=== PATIENT | female | born 1995 | race Caucasian/White ===

== ENCOUNTER 2023-12-30 21:45 | Emergency (ER) | payer OTHER, SELFPAY ==
[2023-12-30 21:48] VITALS: BP 176/131; PULSE 108; TEMP 36.8; O2SAT 100; BMI 48.3
[2023-12-30 21:52] VITALS: PULSE 98
--- NOTE | 2023-12-30 21:52 | ECG_ITS ---
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
--- NOTE | 2023-12-30 22:06 | ED.SOB1 ---
HPI - SOB/Dyspnea General Chief Complaint: Shortness of Breath/Dyspnea Stated Complaint: Rib Pain shortness of breath Time Seen by Provider: 12/30/23 21:54 Source: patient Mode of arrival: walk-in Limitations: no limitations History of Present Illness HPI Narrative: presents complaining of left sided mid axillary chest pain since yesterday. Feels like she is not able to catch her breath. No nausea or light headiness. No known heart disease. no associated cough Related Data Home Medications ?Medication ?Instructions ?Recorded ?Confirmed bupropion HCl 300 mg 24 hr tablet, 300 mg PO DAILY 12/30/23 12/30/23 extended release (Wellbutrin XL) buspirone 10 mg tablet 10 mg PO BID PRN anxiety 12/30/23 12/30/23 Allergies Allergy/AdvReac Type Severity Reaction Status Date / Time No Known Drug Allergies Allergy Verified 12/30/23 21:48 Review of Systems ROS Status of ROS 10 or more systems reviewed and unremarkable except as noted in history and below Exam Constitutional Vital Signs, click to edit/add: Last Vital Signs Temp 98.2 F 12/30/23 21:48 Pulse 90 12/30/23 23:45 Resp 26 H 12/30/23 23:45 BP 132/91 12/30/23 23:45 Pulse Ox 98 12/30/23 23:45 O2 Del Method Room Air 12/30/23 23:45 Common normals: no apparent distress, average body habitus, oriented x3, no limitations, healthy appearing, alert and well nourished [facility] Common normals: normocephalic and head/scalp atraumatic Respiratory Common normals: normal respiratory effort, no retractions, no use of accessory muscles and clear to auscultation bilaterally Cardio Common normals: regular rate, regular rhythm, S1 normal heart sound and S2 normal heart sound GI Common normals: Normal to inspection, nondistended, normoactive bowel sounds present, soft to palpation and non-tender Extremity Common normals: normal to inspection and full ROM Neuro Common normals: oriented x3, CN's II-XII intact bilaterally, moves all extremities and no focal motor deficits Psych Appearance: grossly normal Course Vital Signs Vital signs: Vital Signs Temperature 98.2 F 12/30/23 21:48 Pulse Rate 108 H 12/30/23 21:48 Respiratory Rate 20 12/30/23 21:48 Blood Pressure 176/131 H 12/30/23 21:48 Pulse Oximetry 100 12/30/23 21:48 Oxygen Delivery Method Room Air 12/30/23 21:48 Temperature 98.2 F 12/30/23 21:48 Pulse Rate 90 12/30/23 23:45 Respiratory Rate 26 H 12/30/23 23:45 Blood Pressure 132/91 12/30/23 23:45 Pulse Oximetry 98 12/30/23 23:45 Oxygen Delivery Method Room Air 12/30/23 23:45 MDM - SOB/Dyspnea MDM Narrative Medical decision making narrative: presents complaining of pleuritic chest pain. d-dimer positive. CTA chest without definite PE. Pain improved after Toradol and solumedrol. Patient feeling better and discharged home with working diagnosis of pleurisy Lab Data Labs: Lab Results 12/30/23 Range/Units 22:17 WBC 11.1 H (4.0-11.0) 10^3/uL RBC 4.59 (4.20-5.40) 10^6/uL Hgb 12.8 (12.0-16.0) g/dL Hct 38.6 (36.0-48.0) % MCV 84.1 (81.0-99.0) fL MCH 27.9 (26.7-34.0) pg MCHC 33.2 (29.9-35.2) g/dL RDW 12.4 (11.0-15.0) % Plt Count 285 (150-450) 10^3/uL MPV 10.4 (9.5-13.5) fL Neut % (Auto) 66.7 (43.0-75.0) % Lymph % (Auto) 26.6 (20.5-60.0) % Bennett % (Auto) 5.2 (1.7-12.0) % Eos % (Auto) 1.0 (0.9-7.0) % Baso % (Auto) 0.3 (0.2-2.0) % Neut # (Auto) 7.4 H (1.4-6.5) 10^3/uL Lymph # (Auto) 3.0 (1.2-3.8) 10^3/uL Bennett # (Auto) 0.6 (0.3-0.8) 10^3/uL Eos # (Auto) 0.1 (0.0-0.7) 10^3/uL Baso # (Auto) 0.0 (0.0-0.1) 10^3/uL Abs Immat Gran (auto) 0.02 (0.00-0.03) 10^3/uL Imm/Tot Granulo (auto) 0.2 (0.0-0.5) % D-Dimer 0.65 H* (<=0.59) mg/L FEU Sodium 140 (136-145) mmol/L Potassium 3.8 (3.5-5.1) mmol/L Chloride 107 (98-107) mmol/L Carbon Dioxide 23.4 (21.0-32.0) mmol/L Anion Gap 13.4 BUN 13.0 (7.0-18.0) mg/dL Creatinine 0.76 (0.55-1.02) mg/dL Est GFR ( Amer) >60 (>=60) Est GFR (Non-Af Amer) >60 (>=60) BUN/Creatinine Ratio 17.1 Glucose 100 (74-106) mg/dL Calcium 9.1 (8.5-10.1) mg/dL Troponin I High Sens <4.0 L (4.0-51.3) pg/mL Serum HCG, Qual Negative (NEGATIVE) Imaging Data Chest x-ray: Radiologist's impression: ITS Impressions Chest X-Ray 12/30/23 22:08 IMPRESSION: No acute pulmonary disease. Electronically authenticated by: ESTELA FREY Date: 12/30/2023 22:49 Chest CTA 12/30/23 22:37 IMPRESSION: 1. Suboptimal opacification of the pulmonary arteries. No obvious central pulmonary embolism in the main pulmonary arteries or interlobar branches. Segmental and subsegmental branches are not optimally evaluated. 2. Trace left pleural effusion. No acute airspace disease within the lungs. Electronically authenticated by: ISAAK NICHOLS Date: 12/30/2023 23:37 Discharge Plan Discharge Stand Alone Forms: Portal Instructions Chief Complaint: Shortness of Breath/Dyspnea Clinical Impression: Pleuritic chest pain Patient Disposition: Home, Self-Care Prescriptions / Home Meds: No Action bupropion HCl [Wellbutrin XL] 300 mg tablet extended release 24 hr 300 mg PO DAILY buspirone 10 mg tablet 10 mg PO BID PRN (Reason: anxiety) Print Language: Syriac Instructions: Pleurisy (ED) Additional Instructions: use ibuprofen or similar for pain Referrals: [facility] [Primary Care Provider] - 1 week
--- NOTE | 2023-12-30 22:08 | XR_ITS ---
The [address] [address] Patient Name: SERGIO DONALDSON MRN: [id number] date: 1995 Sex: F Assigned Patient Location: ER Current Patient Location: ER Accession/Order Number: [id number] Exam Date: 12/30/2023 22:27 Report Date: 12/30/2023 22:49 At the request of: VICENTA BOWENS Procedure: XR chest 1V EXAM: XR chest 1V TECHNIQUE: Single AP view chest HISTORY: chest pain COMPARISON: CT scan 01/10/2012 FINDINGS: The cardiac silhouette is enlarged. There is no gross acute consolidation. Osseous structures are intact. Evaluation limited by low lung volumes. XR/XR chest 1V IMPRESSION: No acute pulmonary disease. Electronically authenticated by: ESTELA FREY Date: 12/30/2023 22:49
[2023-12-30 22:17] VITALS: O2SAT 98
[2023-12-30 22:25] LABS: Basophils Percent Auto 0.3 % (0.2-2.0); Eosinophils Absolute Auto 0.1 10^3/uL (0.0-0.7); Hematocrit 38.6 % (36.0-48.0); Hemoglobin 12.8 g/dL (12.0-16.0); Immature Granulocytes Abs Auto 0.02 10^3/uL (0.00-0.03); Immature Granulocytes Pct Auto 0.2 % (0.0-0.5); Lymphocytes Percent Auto 26.6 % (20.5-60.0); Mean Corpuscular HGB Conc 33.2 g/dL (29.9-35.2); Mean Corpuscular Hemoglobin 27.9 pg (26.7-34.0); Mean Corpuscular Volume 84.1 fL (81.0-99.0); Mean Platelet Volume 10.4 fL (9.5-13.5); Monocytes Absolute Auto 0.6 10^3/uL (0.3-0.8); Monocytes Percent Auto 5.2 % (1.7-12.0); Neutrophils Absolute Auto 7.4 10^3/uL (1.4-6.5); Neutrophils Percent Auto 66.7 % (43.0-75.0); Platelet Count 285 10^3/uL (150-450); Red Blood Count 4.59 10^6/uL (4.20-5.40); Red Cell Distribution Width 12.4 % (11.0-15.0); White Blood Count 11.1 10^3/uL (4.0-11.0)
[2023-12-30 22:35] LABS: HCG Qualitative NEGATIVE (NEGATIVE)
--- NOTE | 2023-12-30 22:37 | CT_ITS ---
The [address] [address] Patient Name: SERGIO DONALDSON MRN: [id number] date: 1995 Sex: F Assigned Patient Location: ER Current Patient Location: ER Accession/Order Number: [id number] Exam Date: 12/30/2023 23:01 Report Date: 12/30/2023 23:37 At the request of: VICENTA BOWENS Procedure: CT angio chest EXAMINATION:CT angio chest INDICATION:pleuritic chest pain COMPARISON:01/10/2012 TECHNIQUE:Thin section transaxial slices were acquired through the chest with intravenous contrast per PE protocol. Coronal and sagittal reconstructed images were reviewed. FINDINGS: PULMONARY ARTERIES: There is suboptimal opacification of the pulmonary vasculature. No central pulmonary embolus is identified in the main pulmonary arteries or interlobar branches. The segmental and subsegmental branches are not optimally opacified for adequate evaluation. LUNGS: Lungs are clear. PLEURAL CAVITY: Trace left pleural effusion. MEDIASTINUM: Trachea and central airways are patent. HEART: The heart is unremarkable.There is no evidence of right heart strain. VASCULAR:There is no aneurysm or dissection of the thoracic aorta. LYMPH NODES:No suspicious lymphadenopathy. CHEST WALL/AXILLA: Chest wall and axilla are unremarkable. BONES: Osseous structures are unremarkable. VISUALIZED UPPER ABDOMEN: Upper abdominal structures are unremarkable. CT/CT angio chest IMPRESSION: 1. Suboptimal opacification of the pulmonary arteries. No obvious central pulmonary embolism in the main pulmonary arteries or interlobar branches. Segmental and subsegmental branches are not optimally evaluated. 2. Trace left pleural effusion. No acute airspace disease within the lungs. Electronically authenticated by: ISAAK NICHOLS Date: 12/30/2023 23:37
[2023-12-30 22:43] LABS: D Dimer 0.65 mg/L FEU (<=0.59)
[2023-12-30 22:47] LABS: Anion Gap 13.4; BUN Creatinine Ratio 17.1; Calcium 9.1 mg/dL (8.5-10.1); Carbon Dioxide 23.4 mmol/L (21.0-32.0); Chloride 107 mmol/L (98-107); Estimated GFR (African America >60 (>=60); Estimated GFR (Non-African Ame >60 (>=60); Glucose 100 mg/dL (74-106); Potassium 3.8 mmol/L (3.5-5.1); Sodium 140 mmol/L (136-145); Troponin I High Sensitivity <4.0 pg/mL (4.0-51.3)
[2023-12-30] MEDS: KETOROLAC TROMETHAMINE 30 MG/ML VIAL IVP (22:54)
[2023-12-30 23:14] VITALS: BP 153/92; PULSE 95; O2SAT 95
[2023-12-30 23:45] VITALS: BP 132/91; PULSE 90; O2SAT 98
[2023-12-31] MEDS: METHYLPREDNISOLONE SOD SUCC PF 125 MG/2 ML VIAL IVP (00:21)
[2023-12-31 01:43] VITALS: BP 130/78; PULSE 87; O2SAT 100
== END 2023-12-31 01:44 | disposition home or self-care (01) ==
PROVIDERS: Emergency Provider Internal Medicine
DX: R07.81 Pleurodynia (principal); Z79.899 Other long term (current) drug therapy
CPT/HCPCS: 36415; 71045; 71275; 80048; 84484; 84703; 85025; 85378; 93005; 96374; 96375; 99285; J2919; Q9967

== ENCOUNTER 2024-09-26 11:17 | Emergency (ER) | payer OTHER, SELFPAY ==
[2024-09-26] VITALS (16 sets, daily range): BP systolic 143–146; BP diastolic 97–105; PULSE 76–97; TEMP 36.9; O2SAT 96–100; BMI 47.4
--- NOTE | 2024-09-26 12:07 | XR_ITS ---
The [place] [id number] Patient Name: SERGIO DONALDSON MRN: [id number] date: 1995 Sex: F Assigned Patient Location: ER Current Patient Location: Accession/Order Number: [id number] Exam Date: 09/26/2024 12:20 Report Date: 09/26/2024 14:30 At the request of: EARLE BARRIOS Procedure: XR chest 2V HISTORY: Shortness of breath for the past day. XR chest 2V: 09/26/2024 12:20 PM EST COMPARISON: Portable AP chest 12/30/2023. FINDINGS: The heart appears within upper limits of normal in size. No focal consolidation, pleural effusion, pneumothorax or evidence of congestive heart failure seen. There is mild multilevel discogenic disease of the thoracic spine. XR/XR chest 2V IMPRESSION: No radiographic evidence of active cardiopulmonary disease is seen. Electronically authenticated by: JUSTINE MASSEY Date: 09/26/2024 14:30
--- NOTE | 2024-09-26 12:07 | ECG_ITS ---
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
[2024-09-26] MEDS: lidocaine HCL 15 ML, MAG HYDROX/ALUMINUM HYD/SIMETH 30 ML, HYOSCYAMINE SULFATE 0.25 MG PO (13:21)
--- NOTE | 2024-09-26 13:44 | ED.GENADUL1 ---
HPI HPI - General Adult General Chief complaint: Chest Pain Stated complaint: CHEST PAIN, SHORTNESS OF BREATH Time Seen by Provider: 09/26/24 12:07 Source: patient Mode of arrival: walk-in History of Present Illness HPI narrative: Patient is a 29-year-old female who is presenting to the ER midepigastric pain discharged around 1:00 this morning. Patient has some cheese pizza last night. Patient does take daily antacid medication daily. Patient states she did not have excessive caffeine or alcohol last night. Patient woke up at 1:00 this morning with sharp burning sensation below the mid sternum. Patient's pain has been continuous. Patient did not take any medication [id number] to help with her symptoms. Patient is on control, she has a ring that she places intravaginally and stays in for 1 year. Patient has no recent traveling, she is a non-smoker, does not vape. Patient has no history of blood clots. Patient does not take any medication for diabetes, cholesterol, hypertension, no family history of early deaths secondary to cardiac disease, no MIs at early age in the family. Patient boyfriend at bedside. Patient's had no nausea or vomiting. No acute complaints. All systems are negative except as noted/marked. All systems reviewed and otherwise negative. Nurses note and vital signs reviewed and patient is not hypoxic. General: The patient appears well and in no apparent distress. Patient is resting comfortably on cart. Patient is not toxic, lethargic, or listless Skin: Warm, dry, no pallor noted. There is no rash noted. No petechiae, purpura. Head: Normocephalic, atraumatic Eye: Normal conjunctiva, no drainage, EOMI. PERRL Ears, Nose, Mouth, and Throat: oral mucosa is moist. Nares patent. Mouth without vesicles. Cardiovascular: Regular Rate and Rhythm, no murmur, gallop, rub. patient has some reproducible tenderness to palpation. Superficially to the lower third of the sternum, no crepitus palpated. Equal breath sounds bilateral. No rash. No dislocation or acute abnormality. Respiratory: Patient is in no distress, no accessory muscle use, lungs are clear to auscultation, no wheezing, rales or rhonchi Back: non-tender, no CVA tenderness bilaterally to percussion. No CT LS midline pain GI: Obese, soft, minimal midepigastric tenderness to palpation, no peritoneal signs, otherwise no tenderness to palpation, no masses appreciated. No rebound, guarding, or rigidity noted. No distention Musculoskeletal: Patient has full range of motion of all of the extremities, no motor, sensory, or focal neurological deficits Neurological: A&O x4, normal speech Psychiatric: Cooperative Related Data Home Medications ?Medication ?Instructions ?Recorded ?Confirmed bupropion HCl 300 mg 24 hr tablet, 300 mg PO DAILY 12/30/23 09/26/24 extended release (Wellbutrin XL) albuterol sulfate 90 mcg/actuation 2 puff inhalation Q4H PRN 09/26/24 09/26/24 aerosol inhaler shortness of breath or wheezing cholecalciferol (vitamin D3) 125 125 mcg PO DAILY 09/26/24 09/26/24 mcg (5,000 unit) tablet pantoprazole 40 mg tablet,delayed 40 mg PO DAILY 09/26/24 09/26/24 release Allergies Allergy/AdvReac Type Severity Reaction Status Date / Time No Known Drug Allergies Allergy Verified 12/30/23 21:48 Opioid HPI Opioid Management Most Recent Opioid Data: Last Pain Scale 7 09/26/24 11:47 09/26/24 PFSH PFSH Social History Little interest or pleasure in doing things: not at all Feeling down, depressed, or hopeless: not at all Exam Constitutional Vital Signs, click to edit/add: Last Vital Signs Temp 98.4 F 09/26/24 11:22 Pulse 79 09/26/24 13:30 Resp 18 09/26/24 13:30 BP 146/105 H 09/26/24 13:30 Pulse Ox 96 09/26/24 13:30 O2 Del Method Room Air 09/26/24 11:46 Course Vital Signs Vital signs: Vital Signs Temperature 98.4 F 09/26/24 11:22 Pulse Rate 83 09/26/24 11:22 Respiratory Rate 16 09/26/24 11:22 Blood Pressure 143/97 H 09/26/24 11:22 Pulse Oximetry 99 09/26/24 11:22 Oxygen Delivery Method Room Air 09/26/24 11:22 Temperature 98.4 F 09/26/24 11:22 Pulse Rate 79 09/26/24 13:30 Respiratory Rate 18 09/26/24 13:30 Blood Pressure 146/105 H 09/26/24 13:30 Pulse Oximetry 96 09/26/24 13:30 Oxygen Delivery Method Room Air 09/26/24 11:46 Medical Decision Making MDM Narrative Medical decision making narrative: Patient EKG showed no acute changes, chest x-ray is negative. There was a delay in getting patient's GI cocktail. When patient did receive the GI cocktail, she stated that most of her pain had dissipated. Education on acid reflux was done at bedside and on discharge paperwork. Patient understands she is to return back to the ER if she is having heavy heavy chest pressure, extreme shortness of breath, or any other acute concerns. Patient was educated using Maalox or Mylanta [id number]-befcast at home, patient will continue with antiacid medication. No questions at discharge. ECG Data Attestation: I personally reviewed and interpreted this ECG as follows: (EKG interpretation. Normal sinus rhythm 84 beats a minute. Normal axis deviation. No acute ST elevation, no acute ectopy. QTc of 411.) Discharge Plan Discharge Chief Complaint: Chest Pain Clinical Impression: Gastritis, Chest pain Patient Disposition: Home, Self-Care Time of Disposition Decision: 13:43 Condition: Fair Prescriptions / Home Meds: No Action albuterol sulfate 90 mcg/actuation HFA aerosol inhaler 2 puff INHALATION Q4H PRN (Reason: shortness of breath or wheezing) cholecalciferol (vitamin D3) 125 mcg (5,000 unit) tablet 125 mcg PO DAILY pantoprazole 40 mg tablet,delayed release (DR/EC) 40 mg PO DAILY bupropion HCl [Wellbutrin XL] 300 mg tablet extended release 24 hr 300 mg PO DAILY Print Language: Palestinian Instructions: Chest Pain (ED), Gastritis (ED) Additional Instructions: Use Maalox or Mylanta at home if needed for rescue medication for acid reflux Continue taking daily acid reflux medication Follow-up with PCP if symptoms continue for 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
== END 2024-09-26 13:56 | disposition home or self-care (01) ==
PROVIDERS: Emergency Provider Emergency Medicine
DX: K29.70 Gastritis, unspecified, without bleeding (principal); R07.9 Chest pain, unspecified
CPT/HCPCS: 71046; 93005; 99284